=== PATIENT | male | born 1980 | race Caucasian/White ===

== ENCOUNTER → 2021-07-11 14:53 | Outpatient (BNVA) | payer MEDICAID, SELFPAY | PROVIDERS: Visit Provider Internal Medicine | DX: R76.8 Other specified abnormal immunological findings in serum (principal); B19.20 Unspecified viral hepatitis C without hepatic coma; B18.2 Chronic viral hepatitis C | CPT/HCPCS: 80053; 82105; 87522; 87902 ==

== ENCOUNTER 2021-09-07 08:28 | Outpatient (CLI) | payer MEDICAID, SELFPAY ==
--- NOTE | 2021-09-07 08:45 | US_ITS ---
WS: [id number] ULTRASOUND ABDOMEN LIMITED CLINICAL INFORMATION: h/o hep c COMPARISON: None. FINDINGS: Liver Size: Normal. Craniocaudal length: 13.9 cm. Echogenicity: Coarse Surface nodularity: None. Mass (size and location): None. Bile ducts Intrahepatic ducts: Normal. Common bile duct diameter: 0.6 cm. Gallbladder Normal. Gallstones: None. Gallbladder sludge: None. Gallbladder wall thickening: None. Pericholecystic fluid: None. Sonographic [place] sign: Absent. Pancreas Normal as visualized. Right kidney: Normal. Hydronephrosis: None. Size: 10.9 cm x 4.8 cm x 4.9 cm. Abdominal aorta and IVC Visualized portions are normal. Ascites: None. US/US liver [id number] IMPRESSION: 1. Mild diffuse heterogeneous coarse hepatic echotexture likely due to hepatoc ellular disease considering history. Recommend correlation with liver function tests. No focal lesions. 2. No intrahepatic biliary ductal dilatation. 3. Normal gallbladder. Common bile duct measures 6 mm. 4. No hydronephrosis in RIGHT kidney.
== END 2021-09-07 08:29 | disposition home or self-care (01) ==
LOC: RAD 08:31
PROVIDERS: Visit Provider Internal Medicine
DX: R76.8 Other specified abnormal immunological findings in serum (principal); B18.2 Chronic viral hepatitis C
CPT/HCPCS: 76705

== ENCOUNTER → 2021-10-18 10:40 | Outpatient (BNVA) | payer MEDICAID, SELFPAY | PROVIDERS: Visit Provider Internal Medicine | DX: B18.2 Chronic viral hepatitis C (principal) | CPT/HCPCS: 86705; 86706; 87340 ==